=== PATIENT | female | born 1985 | race Caucasian/White ===

== ENCOUNTER 2024-08-29 14:05 | Outpatient (CLI) | payer OTHER | END 2024-08-29 14:06 | disposition home or self-care (01) | LOC: CSHMAMMO 14:05 | PROVIDERS: ATTEND Nurse Practitioner Family | DX: N63.23 Unspecified lump in the left breast, lower outer quadrant (principal); N64.4 Mastodynia | CPT/HCPCS: 77066; G0279 ==